=== PATIENT | female | born 1945 | race African-American/Black ===

== ENCOUNTER 2021-09-26 15:02 | Observation (INO) ==
[2021-09-26] MEDS ORDERED: GLUCAGON 1 MG VIAL IM PRN (17:12)
[2021-09-26] MEDS ORDERED: ZALEPLON 5 MG CAPSULE PO PRN (17:12)
[2021-09-26] MEDS ORDERED: hydrALAZINE 20 MG/1 ML VIAL IV PRN (17:12)
[2021-09-26] MEDS ORDERED: DEXTROSE 50% 25 GM/50 ML SYRINGE IV PRN (17:19)
[2021-09-26] MEDS ORDERED: ENOXAPARIN 40 MG/0.4 ML SYRINGE SUBCUT SCH (17:30)
[2021-09-26 17:48] LABS: Basophils % 0.6 % (0.0-0.8); Eosinophils # 0.1 10*3/uL (0.0-0.87); Eosinophils % 2.7 % (0.00-10.9); Hematocrit 38.8 VOL% (35.7-47.0); Hemoglobin 12.3 GM/DL (12.0-16.0); Immature Granulocytes % 0.2 %; Immature Granulocytes Absolute 0.01 #; Lymphocytes # 2.4 10*3/uL (1.4-4.0); Lymphocytes % 49.7 % (21.3-54.2); Mean Corpuscular HGB Conc 31.7 GM/DL (32-36); Mean Corpuscular Volume 87.8 FL (87-102); Mean Platelet Volume 8.7 FL (9.6-12.0); Monocytes % 7.2 % (1.7-12.7); Neutrophils % 39.6 % (38.7-73.9); Platelet Count 252 T/CUMM (130-400); Red Blood Count 4.42 MC/CUMM (3.8-5.5); Red Cell Distribution Width 15.1 % (9.3-17.3); White Blood Count 4.9 T/CUMM (4-12)
[2021-09-26] MEDS ORDERED: METHOCARBAMOL 500 MG TABLET PO PRN (17:59)
[2021-09-26] MEDS ORDERED: ACETAMINOPHEN 325 MG TABLET PO PRN (18:00)
[2021-09-26 18:14] LABS: Calcium 9.2 MG/DL (8.5-10.1); Osmolality,Calculated 273.7 MOS/KG (273-304); Potassium 3.2 MMOL/L (3.5-5.1); Thyroid Stimulating Hormone 2.89 uIU/ml (0.358-3.74)
[2021-09-26] MEDS ORDERED: PRAMIPEXOLE 0.25 MG TABLET PO SCH (21:00)
[2021-09-26] MEDS ORDERED: HydrOXYzine PAMOATE 25 MG CAPSULE PO SCH (21:00)
[2021-09-26] MEDS ORDERED: ATORVASTATIN 10 MG TABLET PO SCH (21:00)
[2021-09-26] MEDS: NITROFURANTOIN MACRO/MONO 100 MG CAPSULE PO SCH (21:04)
[2021-09-26] MEDS: KETOROLAC 0.5% OPH SOLN 5 ML BOTTLE BOTH EYES SCH (21:04)
[2021-09-27] MEDS: ONDANSETRON 4 MG/2 ML VIAL IV PRN ×2 (04:28→11:30)
[2021-09-27] MEDS ORDERED: LEVOTHYROXINE 100 MCG TABLET PO SCH (06:30)
[2021-09-27 06:42] LABS: Risk Ratio 2.61; VLDL Cholesterol 17.8 MG/DL
[2021-09-27] MEDS ORDERED: PANTOPRAZOLE 40 MG TABLET PO SCH (09:00)
[2021-09-27] MEDS ORDERED: CHLORTHALIDONE 25 MG TABLET PO SCH (09:00)
[2021-09-27] MEDS ORDERED: FLUTICASONE 50 MCG NASAL SPRAY 16 GM BOTTLE BOTH NARES SCH (09:00)
[2021-09-27] MEDS ORDERED: LOSARTAN 25 MG TABLET PO SCH (09:00)
[2021-09-27] MEDS ORDERED: GABAPENTIN 400 MG CAPSULE PO SCH (09:00)
[2021-09-27] MEDS ORDERED: ASPIRIN EC 81 MG TABLET PO SCH (09:00)
[2021-09-27] MEDS ORDERED: amLODIPine 5 MG TABLET PO SCH (09:00)
[2021-09-27] MEDS ORDERED: SERTRALINE 100 MG TABLET PO SCH (09:00)
[2021-09-27 09:37] LABS: Osmolality,Calculated 275.5 MOS/KG (273-304); Potassium 3.3 MMOL/L (3.5-5.1)
[2021-09-27] MEDS ORDERED: POTASSIUM CHLORIDE 20 MEQ TABLET PO ONE (09:40)
[2021-09-27] MEDS: NITROFURANTOIN MACRO/MONO 100 MG CAPSULE PO SCH (09:50)
[2021-09-27] MEDS: KETOROLAC 0.5% OPH SOLN 5 ML BOTTLE BOTH EYES SCH ×2 (09:58→13:21)
[2021-09-27] MEDS ORDERED: SIMETHICONE CHEW 125 MG TABLET PO PRN (12:35)
[2021-09-27 12:51] VITALS: BP 151/74
[2021-09-27] MEDS ORDERED: CALCIUM CARBONATE CHEW 500 MG TABLET PO PRN (12:52)
[2021-09-27] MEDS ORDERED: NYSTATIN 500,000 UNIT/5 ML UDCUP SWISH/SWAL SCH (13:00)
[2021-09-28] MEDS ORDERED: amLODIPine 10 MG TABLET PO SCH (09:00)
== END 2021-09-27 16:21 | disposition home or self-care (01) ==
LOC: N.TELES
PROVIDERS: ADMIT Internal Medicine; ATTEND Internal Medicine